=== PATIENT | male | born 1945 | race Hispanic/Latino ===

== ENCOUNTER 2018-06-12 07:33 | Day surgery (SDC) | payer MEDICARE ==
[2018-06-12] MEDS ORDERED: ECOTRIN PO NR (07:52)
[2018-06-12] MEDS ORDERED: NACL 0.9% 500 ML 500 ML IV SCH (08:00)
[2018-06-12] MEDS ORDERED: NACL 0.9% 0 ML ONE (08:54)
[2018-06-12] MEDS: CALAN ONE ×2 (09:11→09:53)
[2018-06-12] MEDS: HEPARIN 10,000 UNITS/10 ML ONE ×2 (09:11→09:53)
[2018-06-12] MEDS: XYLOCAINE 2% INFILTRATI ONE ×2 (09:11→09:53)
[2018-06-12] MEDS: VERSED ONE ×2 (09:11→09:52)
[2018-06-12] MEDS: SUBLIMAZE ONE ×2 (09:11→09:52)
[2018-06-12] MEDS: HEPARIN/NS 5000 UNIT/500ML(CATH LAB) 1,000 ML IR ONE ×2 (09:12→09:50)
[2018-06-12] MEDS: NITROGLYCERIN SYRINGE 3 ML ONE ×2 (09:12→09:53)
--- NOTE | 2018-06-12 10:24 | Short Stay Summary ---
Short Stay Documentation Date of service: 06/12/18 - History H&P: obtained from office - Allergies and Medications Current Medications: Allergies No Known Allergies Allergy (Verified 06/12/18 07:51) Home Medications Medication Instructions Recorded Confirmed Last Taken Type AtorvaSTATin [Lipitor] 10 mg PO DAILY 06/12/18 06/12/18 06/12/18 History 10mg Glimepiride 1 mg PO DAILY 06/12/18 06/12/18 06/12/18 History 1mg Insulin Glargine,Hum.rec.anlog 20 units SC DAILY 06/12/18 06/12/18 06/12/18 History [Toujeo Solostar] 20 Lisinopril/Hydrochlorothiazide 1 tab PO DAILY 06/12/18 06/12/18 06/12/18 History [Zestoretic 10-12.5 mg Tablet] 1 Metformin HCl 1,000 mg PO BID 06/12/18 06/12/18 06/11/18 History 1000mg Temazepam 15 mg PO QHS 06/12/18 06/12/18 06/11/18 History 15mg Venlafaxine Xr [Effexor XR] 75 mg PO DAILY 06/12/18 06/12/18 06/12/18 History 75mg amLODIPine [Norvasc] 10 mg PO DAILY 06/12/18 06/12/18 06/12/18 History 10mg Active Medications Sodium Chloride (Nacl 0.9% 500 Ml) 500 mls @ 50 mls/hr IV DIRECT FLY Stop: 06/12/18 17:59 Last Admin: 06/12/18 08:22 Dose: 50 mls/hr - Brief post op/procedure progress note Date of procedure: 06/12/18 Pre-op diagnosis: positive stress test Post-op diagnosis: other Procedure: [facility] Anesthesia: local Estimated blood loss: none Pathology: none - Disposition Condition at discharge: Good Disposition: [id number] TO HOME OR SELFCARE - Discharge Diagnoses (1) Abnormal cardiovascular stress test Status: Resolved (2) Hypertension Status: Acute Qualifiers: Hypertension type: essential hypertension Qualified Code(s): I10 - Essential (primary) hypertension (3) Hyperlipemia, mixed Status: Chronic (4) Diabetes mellitus Status: Chronic Qualifiers: Diabetes mellitus type: type 1 Diabetes mellitus complication status: without complication Qualified Code(s): E10.9 - Type 1 diabetes mellitus without complications Short Stay Discharge Plan Activity: advance as tolerated Diet: low fat, low cholesterol, low salt, diabetic Special Instructions: hold Metformin (for two days) Follow up with: TORSTEN HAYS MD [Other] - 7 Days
--- NOTE | 2018-06-12 12:57 | Cardiac Catherization Report ---
LEFT HEART CATH CLINICAL INFORMATION: This is a 73-year-old gentleman with hypertension, diabetes, cholesterol, who has a large inferior defect on stress test and shortness of breath on exertion, is here for left heart catheterization. The patient was under moderate sedation. Total sedation time was 15 minutes, started 9:52 a.m., finished at 10:07 a.m., 1 mg Versed, 50 mcg of fentanyl was given. Procedure was done via the right radial artery, sterile technique, local anesthesia, 6-Bangladeshi radial sheath inserted. PROCEDURE FINDINGS: Left system engaged with JL3.5 catheter. Left main is large and patent and long, bifurcates into large LAD, is patent with moderate to severe tortuosity with mild irregularities. Diagonal 1, diagonal 2 are small-caliber vessel, patent. Circumflex is a large caliber vessel, proximal large tortuosity goes into a large OM1, moderate tortuosity, and has upper and lower branches are patent. The AV groove with a circ is small caliber and patent. RCA engaged with JR4, is large dominant vessel, patent, moderate to severe tortuosity, bifurcates to medium-caliber PDA that has multiple branches and PLV. LV gram done in AMHARIC and GONZALEZ view shows normal function. LVEDP is 17 mmHg, LV is 150/17, aortic is 150/70. No gradient across the aortic valve on pullback. 5-Bangladeshi catheters were taken over a guidewire, 6-Bangladeshi radial sheath was discontinued, radial dressing applied. No hematoma, no bleeding. SUMMARY: Left main patent, left anterior descending patent, circa patent, obtuse marginal 1 patent and large, right coronary artery patent. They are moderate severe tortuosity vessel, large epicardial vessel, mild irregularities of the left anterior descending, normal LV function. RECOMMENDATION: Continue risk factor modification. Advised to hold metformin for 48 hours post-procedure. JOB# [id number] GRAZYNA/KULDEEP
[2018-06-12 13:03] VITALS: BP 128/71
== END 2018-06-12 13:15 | disposition home or self-care (01) ==
LOC: CATHLABREC 07:33
PROVIDERS: ATTEND Internal Medicine
DX: I25.10 Atherosclerotic heart disease of native coronary artery without angina pectoris (principal); I10 Essential (primary) hypertension; E11.9 Type 2 diabetes mellitus without complications; E78.00 Pure hypercholesterolemia, unspecified; E78.2 Mixed hyperlipidemia; F41.9 Anxiety disorder, unspecified; F32.9 Major depressive disorder, single episode, unspecified; Z79.4 Long term (current) use of insulin; Z79.899 Other long term (current) drug therapy; Z87.891 Personal history of nicotine dependence; Z98.890 Other specified postprocedural states
CPT/HCPCS: 82962; 93005; 93010; 93458; 99156; C1894; J1644; J2250; J3010; J7040; J0153; Q9967